=== PATIENT | female | born 1980 | race Caucasian/White ===

== ENCOUNTER 2020-09-16 19:18 | Emergency (ER) | payer BC, MEDICAID ==
[2020-09-16] MEDS ORDERED: diphenhydrAMINE 50 MG/ML SDV IVPUSH ONE (20:14)
[2020-09-16] MEDS ORDERED: Sodium Chloride 0.9% 1,000 ML IV STA (20:14)
[2020-09-16] MEDS ORDERED: Ketorolac 30 MG/ML SDV IVPUSH ONE (20:14)
[2020-09-16] MEDS ORDERED: Ondansetron 4 MG/2 ML SDV IVPUSH ONE (20:14)
--- NOTE | 2020-09-16 21:22 | CT ---
Head CT Technique: Multiple axial sections through the brain were obtained. Intravenous contrast was not utilized. Reconstructed coronal and sagittal images were obtained. Comparison: No previous intracranial imaging is available. Findings: Ventricles along with basal cisterns and sulci over the convexities are within normal limits for the patient's age. No abnormal parenchymal densities are seen. No evidence of intracranial hemorrhage. No midline shift or mass-effect is seen. Bone window settings were reviewed. Visualized mastoid sinuses and paranasal sinuses show nothing acute. No acute calvarial abnormality is appreciated. Impression: 1. Nothing acute is identified on noncontrast head CT study. Diagnostic code #1
--- NOTE | 2020-09-16 21:31 | EDM.PDOC ---
ED HPI GENERAL MEDICAL PROBLEM - General Chief Complaint: Allergic Reaction Stated Complaint: headache poss allergic reaction Time Seen by Provider: 09/16/20 20:11 Source of Information: Reports: Patient, RN Notes Reviewed History Limitations: Reports: No Limitations - History of Present Illness INITIAL COMMENTS - FREE TEXT/NARRATIVE: Patient is a 40-year-old female presenting to the emergency department with complaints of migraine headache. She states that her symptoms began this morning. She was seen in the clinic by Dr. Carias and started on Imitrex for treatment of migraines. She states that she took 1 tab of this medication and shortly thereafter experienced intense burning in her scalp and worsening of her headache. She describes light sensitivity and blurred vision. She does have a history of headaches which she can normally manage with ibuprofen. She has not previously had any imaging completed on her head. Does feel mildly nauseous but has had no vomiting. Denies any recent head injuries. Treatments ROVING CAN TENDER: Reports: Other (see below) Other Treatments ROVING CAN TENDER: Imitrex Left Upper Arm Pain Score (Numeric/FACES): 9 - Related Data Allergies Allergy/AdvReac Type Severity Reaction Status Date / Time No Known Allergies Allergy Verified 09/16/20 19:40 Home Meds: Home Meds SUMAtriptan succinate [Imitrex] 100 mg PO BID PRN 09/16/20 [History] Past Medical History - Past Health History Medical/Surgical History: Denies Medical/Surgical History Neurological History: Reports: Migraines - Infectious Disease History Infectious Disease History: Reports: Novel Coronavirus Social & Family History - Family History Family Medical History: No Pertinent Family History - Tobacco Use Tobacco Use Status *Q: Never Tobacco User Second Hand Smoke Exposure: No - Caffeine Use Caffeine Use: Reports: None - Recreational Drug Use Recreational Drug Use: No ED ROS ALLERGIC REACTION - Review of Systems Review Of Systems: See Below Constitutional: Reports: No Symptoms HEENT: Reports: Vision Change Respiratory: Reports: No Symptoms Cardiovascular: Reports: No Symptoms Endocrine: Reports: No Symptoms GI/Abdominal: Reports: Nausea. Denies: Vomiting : Reports: No Symptoms Musculoskeletal: Reports: No Symptoms Skin: Reports: No Symptoms Neurological: Reports: Headache. Denies: Dizziness Psychiatric: Reports: No Symptoms Hematologic/Lymphatic: Reports: No Symptoms Immunologic: Reports: No Symptoms ED EXAM GENERAL NO PERIP PULSE - Physical Exam Exam: See Below Exam Limited By: No Limitations General Appearance: Alert, WD/WN, No Apparent Distress Eye Exam: Bilateral Eye: PERRL Respiratory/Chest: No Respiratory Distress, Lungs Clear, Normal Breath Sounds, No Accessory Muscle Use, Chest Non-Tender Cardiovascular: Normal Peripheral Pulses, Regular Rate, Rhythm, No Edema, No Gallop, No JVD, No Murmur, No Rub GI/Abdominal: Normal Bowel Sounds, Soft, Non-Tender, No Organomegaly, No Distention, No Abnormal Bruit, No Mass Neurological: Alert, Oriented, CN II-XII Intact, Normal Cognition, Normal Gait, Normal Reflexes, No Motor/Sensory Deficits Psychiatric: Normal Affect, Normal Mood Course - Vital Signs Last Recorded V/S: Last Vital Signs Temp 97.5 F 09/16/20 19:42 Pulse 79 09/16/20 19:42 Resp 20 09/16/20 19:42 BP 117/49 L 09/16/20 19:42 Pulse Ox 99 09/16/20 19:42 - Orders/Labs/Meds Meds: Medications Discontinued Medications Generic Name Dose Route Start Last Admin Trade Name Amaya PRN Reason Stop Dose Admin Diphenhydramine HCl 50 mg 09/16/20 20:14 09/16/20 20:27 Diphenhydramine 50 Mg/Ml Sdv IVPUSH 09/16/20 20:15 50 mg ONETIME ONE Administration Sodium Chloride 1,000 mls @ 999 mls/hr 09/16/20 20:14 09/16/20 20:27 Normal Saline IV 09/16/20 21:14 999 mls/hr NOW STA Administration Ketorolac Tromethamine 30 mg 09/16/20 20:14 09/16/20 20:29 Ketorolac 30 Mg/Ml Sdv IVPUSH 09/16/20 20:15 30 mg ONETIME ONE Administration Ondansetron HCl 4 mg 09/16/20 20:14 09/16/20 20:27 Ondansetron 4 Mg/2 Ml Sdv IVPUSH 09/16/20 20:15 4 mg ONETIME ONE Administration - Re-Assessments/Exams Free Text/Narrative Re-Assessment/Exam: patient is a 40 year old female presenting to the ER with c/o migraine headaches that has worsened since taking a first dose of imitrex. She reports that she experienced intense burning in her scalp after taking this medication, but this has since resolved. She reports a history of headaches but has never had imaging completed. Exam is grossly unremarkable. I have ordered a CT scan of the head without contrast. I will give Toradol, benadryl, zofran, and a 1 liter bolus of NS. 09/16/20 21:[address] showed no intracranial abnormalities. Her headache has resolved. I will discharge her home with instructions to follow-up in the clinic should she continue to experience recurrence of headaches. Discharge instructions as d ocumented. Departure - Departure Time of Disposition: 21:36 Disposition: Home, Self-Care 01 Condition: Good Clinical Impression: Headache Qualifiers: Headache type: unspecified Headache chronicity pattern: acute headache Intractability: not intractable Qualified Code(s): R51.9 - Headache, unspecified - Discharge Information *PRESCRIPTION DRUG MONITORING PROGRAM REVIEWED*: No *COPY OF PRESCRIPTION DRUG MONITORING REPORT IN PATIENT JOSHUA: No Instructions: General Headache Without Cause, [id number] Referrals: Kathie Dawkins NP [Primary Care Provider] - Forms: ED Department Discharge Additional Instructions: You were seen in the ER this evening for worsening of your headache as well as burning in your scalp after taking the Imitrex that was prescribed to you. A CT scan of your head was completed and was found to be normal. While in the ER, you received Toradol, Benadryl, Zofran, and IV fluids. This did resolve your headache. Recommend that you go home and rest. You may use Tylenol and ibuprofen as needed for discomfort; however, you should not take ibuprofen for at least 6 hours. If you continue to have recurring headaches, recommend that you follow-up for further evaluation. If you should experience any new or worsening symptoms, please do not hesistate to return to the ER for reevaluation. Sepsis Event Note (ED) - Evaluation Sepsis Screening Result: No Definite Risk - Focused Exam Vital Signs: Vital Signs Temp Pulse Resp BP Pulse Ox 09/16/20 19:42 97.5 F 79 20 117/49 L 99
[2020-09-16 22:54] VITALS: BP 101/70; PULSE 71
== END 2020-09-16 21:50 | disposition home or self-care (01) ==
LOC: JD.ED 19:18
DX: R51.9 Headache, unspecified (principal); Z86.16 Personal history of COVID-19
CPT/HCPCS: 70450; 96374; 96375; 99283; J1200; J1885; J2405; J7030; 99284

== ENCOUNTER 2021-04-26 08:54 | Emergency (ER) | payer BC, MEDICAID ==
[2021-04-26] MEDS ORDERED: Sodium Chloride 0.9% 10 ML Syringe FLUSH PRN (08:57)
[2021-04-26] MEDS ORDERED: Sodium Chloride 0.9% 1,000 ML IV SCH (09:00)
--- NOTE | 2021-04-26 09:17 | EDM.PDOC ---
ED HPI GENERAL MEDICAL PROBLEM - General Chief Complaint: Abdominal Pain Stated Complaint: VOMITING BACK/ABDOMINAL PAIN Time Seen by Provider: 04/26/21 09:11 - History of Present Illness INITIAL COMMENTS - FREE TEXT/NARRATIVE: 41-year-old female presents the emergency room with abdominal pain. Patient developed nausea vomiting diarrhea and significant abdominal pain about 5:00 this morning. She also noticed significant burning and frequency with urination again this started about 5:00 this morning. Patient denies any possibility of being . She has never had any prior abdominal surgeries. She describes the pain is mostly been on the right side. She describes the diarrhea as watery greasy. She denies prior history of kidney stones or significant abdominal discomfort. abdomen Pain Score (Numeric/FACES): 7 - Related Data Allergies Allergy/AdvReac Type Severity Reaction Status Date / Time sumatriptan Allergy Burning Verified 04/26/21 09:08 Home Meds: Home Meds Hydrocodone/Acetaminophen [HYDROcodone-Acetaminophen 5-325 MG] 1 each PO Q6H PRN #14 tab 04/26/21 [Rx] Prochlorperazine Maleate [Compazine] 10 mg PO Q8H PRN #10 tablet 04/26/21 [Rx] Past Medical History - Past Health History Medical/Surgical History: Denies Medical/Surgical History Neurological History: Reports: Migraines - Infectious Disease History Infectious Disease History: Reports: Novel Coronavirus Social & Family History - Family History Family Medical History: No Pertinent Family History - Tobacco Use Tobacco Use Status *Q: Never Tobacco User - Caffeine Use Caffeine Use: Reports: Energy Drinks, Tea - Recreational Drug Use Recreational Drug Use: No ED ROS GENERAL - Review of Systems Review Of Systems: See Below Constitutional: Reports: Chills. Denies: Fever HEENT: Reports: No Symptoms Respiratory: Reports: No Symptoms Cardiovascular: Reports: No Symptoms GI/Abdominal: Reports: Abdominal Pain, Diarrhea, Nausea, Vomiting : Reports: Dysuria, Frequency, Urgency Musculoskeletal: Reports: Back Pain Neurological: Reports: No Symptoms ED EXAM, GENERAL - Physical Exam Exam: See Below Exam Limited By: No Limitations General Appearance: Alert, Anxious Head: Atraumatic, Normocephalic Neck: Normal Inspection, Supple, Non-Tender, Full Range of Motion. No: Lymphadenopathy (L), Lymphadenopathy (R) Respiratory/Chest: No Respiratory Distress, Lungs Clear, Normal Breath Sounds Cardiovascular: Regular Rate, Rhythm, No Edema, No Murmur GI/Abdominal: Normal Bowel Sounds, Tender (Tenderness is worse on the right side and in the epigastric area), Other (It is somewhat difficult to examine everything is exquisitely tender but no rigidity rebound or guarding) Back Exam: Normal Inspection, CVA Tenderness (R). No: CVA Tenderness (L) Neurological: Alert, Oriented Psychiatric: Anxious Course - Vital Signs Last Recorded V/S: Last Vital Signs Temp 36.7 C 04/26/21 09:05 Pulse 88 04/26/21 12:54 Resp 14 04/26/21 12:54 BP 102/70 04/26/21 12:54 Pulse Ox 98 04/26/21 12:54 Orthostatic Blood Pressure [ 105/82 Standing] Orthostatic Blood Pressure [ 106/77 Sitting] Orthostatic Blood Pressure [ 109/67 Supine] - Orders/Labs/Meds Orders: Active Orders 24 hr Category Date Time Status Communication Order [RC] ASDIRECTED Care 04/26/21 08:57 Active Communication Order [RC] ASDIRECTED Care 04/26/21 08:57 Active Communication Order [RC] ASDIRECTED Care 04/26/21 08:57 Active Orthostatic Vital Signs [RC] ASDIRECTED Care 04/26/21 08:57 Active Peripheral IV Care [RC] . DIRECTED Care 04/26/21 08:57 Active Sodium Chloride 0.9% [Saline Flush] Med 04/26/21 08:57 Active 10 ml FLUSH ASDIRECTED PRN Peripheral IV Insertion Adult [OM.PC] Stat Oth 04/26/21 08:57 Ordered Medication Orders Sodium Chloride (Sodium Chloride 0.9% 10 Ml Syringe) 10 ml FLUSH ASDIRECTED PRN PRN Reason: Keep Vein Open Last Admin: 04/26/21 09:13 Dose: 10 ml Documented by: QUINTIN Labs: Laboratory Tests 04/26/21 04/26/21 04/26/21 Range/Units 09:03 09:03 09:03 WBC 8.89 (3.98-10.04) K/mm3 RBC 4.53 (3.98-5.22) M/mm3 Hgb 13.9 (11.2-15.7) gm/dl Hct 42.2 (34.1-44.9) % MCV 93.2 (79.4-94.8) fl MCH 30.7 (25.6-32.2) pg MCHC 32.9 (32.2-35.5) g/dl RDW Std Deviation 43.4 (36.4-46.3) fL Plt Count 304 (182-369) K/mm3 MPV 10.3 (9.4-12.3) fl Neut % (Auto) 89.8 H (34.0-71.1) % Lymph % (Auto) 4.5 L (19.3-51.7) % Knott % (Auto) 4.4 L (4.7-12.5) % Eos % (Auto) 0.9 (0.7-5.8) Baso % (Auto) 0.2 (0.1-1.2) % Neut # (Auto) 7.98 H (1.56-6.13) K/mm3 Lymph # (Auto) 0.40 L (1.18-3.74) K/mm3 Knott # (Auto) 0.39 H (0.24-0.36) K/mm3 Eos # (Auto) 0.08 (0.04-0.36) K/mm3 Baso # (Auto) 0.02 (0.01-0.08) K/mm3 Sodium 138 (136-145) mEq/L Potassium 3.9 (3.5-5.1) mEq/L Chloride 103 (98-107) mEq/L Carbon Dioxide 25 (21-32) mEq/L Anion Gap 13.9 (5-15) BUN 14 (7-18) mg/dL Creatinine 0.9 (0.55-1.02) mg/dL Est Cr Clr Drug Dosing 66.67 mL/min Estimated GFR (MDRD) > 60 (>60) mL/min BUN/Creatinine Ratio 15.6 (14-18) Glucose 121 H (70-99) mg/dL Calcium 8.2 L (8.5-10.1) mg/dL Magnesium 1.8 (1.8-2.4) mg/dL Total Bilirubin 0.5 (0.2-1.0) mg/dL AST 25 (15-37) U/L ALT 45 (14-59) U/L Alkaline Phosphatase 51 (46-116) U/L C-Reactive Protein <0.2 (<1.0) mg/dL Total Protein 7.2 (6.4-8.2) g/dl Albumin 3.6 (3.4-5.0) g/dl Globulin 3.6 gm/dL Albumin/Globulin Ratio 1.0 (1-2) Lipase 108 (73-393) U/L Urine Color (Yellow) Urine Appearance (Clear) Urine pH (5.0-8.0) Ur Specific Kopperl (1.005-1.030) Urine Protein (Negative) Urine Glucose (UA) (Negative) Urine Ketones (Negative) Urine Occult Blood (Negative) Urine Nitrite (Negative) Urine Bilirubin (Negative) Urine Urobilinogen (0.2-1.0) Ur Leukocyte Esterase (Negative) Urine RBC (0-5) /hpf Urine WBC (0-5) /hpf Ur Squamous Epith Cells (0-5) /hpf Urine Bacteria (FEW) /hpf Urine Mucus (FEW) /hpf Urine HCG, Qual (NEGATIVE) Influenza Type A RNA Negative (NEGATIVE) Influenza Type B RNA Negative (NEGATIVE) SARS-CoV-2 RNA (CHERRY) Negative (NEGATIVE) 04/26/21 04/26/21 Range/Units 09:19 09:19 WBC (3.98-10.04) K/mm3 RBC (3.98-5.22) M/mm3 Hgb (11.2-15.7) gm/dl Hct (34.1-44.9) % MCV (79.4-94.8) fl MCH (25.6-32.2) pg MCHC (32.2-35.5) g/dl RDW Std Deviation (36.4-46.3) fL Plt Count (182-369) K/mm3 MPV (9.4-12.3) fl Neut % (Auto) (34.0-71.1) % Lymph % (Auto) (19.3-51.7) % Knott % (Auto) (4.7-12.5) % Eos % (Auto) (0.7-5.8) Baso % (Auto) (0.1-1.2) % Neut # (Auto) (1.56-6.13) K/mm3 Lymph # (Auto) (1.18-3.74) K/mm3 Knott # (Auto) (0.24-0.36) K/mm3 Eos # (Auto) (0.04-0.36) K/mm3 Baso # (Auto) (0.01-0.08) K/mm3 Sodium (136-145) mEq/L Potassium (3.5-5.1) mEq/L Chloride (98-107) mEq/L Carbon Dioxide (21-32) mEq/L Anion Gap (5-15) BUN (7-18) mg/dL Creatinine (0.55-1.02) mg/dL Est Cr Clr Drug Dosing mL/min Estimated GFR (MDRD) (>60) mL/min BUN/Creatinine Ratio (14-18) Glucose (70-99) mg/dL Calcium (8.5-10.1) mg/dL Magnesium (1.8-2.4) mg/dL Total Bilirubin (0.2-1.0) mg/dL AST (15-37) U/L ALT (14-59) U/L Alkaline Phosphatase (46-116) U/L C-Reactive Protein (<1.0) mg/dL Total Protein (6.4-8.2) g/dl Albumin (3.4-5.0) g/dl Globulin gm/dL Albumin/Globulin Ratio (1-2) Lipase (73-393) U/L Urine Color Yellow (Yellow) Urine Appearance Slt cloudy H (Clear) Urine pH 5.0 (5.0-8.0) Ur Specific Kopperl > or = 1.030 (1.005-1.030) Urine Protein Negative (Negative) Urine Glucose (UA) Negative (Negative) Urine Ketones Negative (Negative) Urine Occult Blood 1+ H (Negative) Urine Nitrite Negative (Negative) Urine Bilirubin Negative (Negative) Urine Urobilinogen 0.2 (0.2-1.0) Ur Leukocyte Esterase Negative (Negative) Urine RBC 5-10 H (0-5) /hpf Urine WBC 0-5 (0-5) /hpf Ur Squamous Epith Cells 0-5 (0-5) /hpf Urine Bacteria Moderate H (FEW) /hpf Urine Mucus Moderate H (FEW) /hpf Urine HCG, Qual Negative (NEGATIVE) Influenza Type A RNA (NEGATIVE) Influenza Type B RNA (NEGATIVE) SARS-CoV-2 RNA (CHERRY) (NEGATIVE) Meds: Medications Generic Name Dose Route Start Last Admin Trade Name Freq PRN Reason Stop Dose Admin Sodium Chloride 10 ml 04/26/21 08:57 04/26/21 09:13 Sodium Chloride 0.9% 10 Ml Syringe FLUSH 10 ml ASDIRECTED PRN Administration Keep Vein Open Discontinued Medications Generic Name Dose Route Start Last Admin Trade Name Amaya PRN Reason Stop Dose Admin Sodium Chloride 1,000 mls @ 999 mls/hr 04/26/21 09:00 04/26/21 09:12 Normal Saline IV 04/26/21 09:59 999 mls/hr Q1H OLIVIA Administration Iopamidol 100 ml 04/26/21 11:56 04/26/21 12:12 Iopamidol 612 Mg/Ml 100 Ml Bottle IVPUSH 04/26/21 11:57 100 ml ONETIME ONE Administration Morphine Sulfate 2 mg 04/26/21 09:54 04/26/21 10:00 Morphine 2 Mg/Ml Syringe IVPUSH 04/26/21 09:55 2 mg ONETIME ONE Administration Ondansetron HCl 4 mg 04/26/21 09:25 04/26/21 09:30 Ondansetron 4 Mg/2 Ml Sdv IVPUSH 04/26/21 09:26 4 mg ONETIME ONE Administration Ondansetron HCl 4 mg 04/26/21 11:47 04/26/21 12:01 Ondansetron 4 Mg/2 Ml Sdv IVPUSH 04/26/21 11:48 4 mg ONETIME ONE Administration Prochlorperazine Edisylate 10 mg 04/26/21 12:46 04/26/21 12:52 Prochlorperazine 10 Mg/2 Ml Sdv IVPUSH 04/26/21 12:47 10 mg ONETIME ONE Administration Sodium Chloride 10 ml 04/26/21 11:56 04/26/21 12:12 Sodium Chloride 0.9% 10 Ml Syringe FLUSH 04/26/21 11:57 10 ml ONETIME ONE Administration - Re-Assessments/Exams Free Text/Narrative Re-Assessment/Exam: 04/26/21 09:33 We will give her some Zofran continue the fluids and attempt reexamination shortly 04/26/21 11:14 Labs reviewed urinalysis is suggestive of microscopic hematuria however leukocyte Estrace nitrates negative not suggestive of infectious process. We will proceed to CT with IV contrast only I cannot exclude an early appendicitis but I am concerned about a kidney stone also. 04/26/21 12:47 CT evaluation of her abdomen is unremarkable. However the appendix was not visualized. I discussed these findings with the patient. She is doing for the most part somewhat better she still having some nausea despite 2 doses of Zofran we will give her a dose of Compazine and see how this goes. But I did explain to her that she should return to the emergency room in 24 hours if not improving sooner if getting worse. 04/26/21 13:06 The Compazine is working better she would like to be discharged. Departure - Departure Time of Disposition: 13:06 Disposition: Home, Self-Care 01 Clinical Impression: Abdominal pain of unknown cause - Discharge Information Referrals: Kathie Dawkins REELING MACHINE OPERATOR [Primary Care Provider] - Forms: ED Department Discharge Additional Instructions: Return to the emergency room with any questions problems or worsening symptoms. The cause your abdominal pain has not been clearly identified. Work-up is pretty unremarkable at this point. However if you are not significantly better in 24 hours return to the emergency room for recheck return sooner if getting worse. You been started on Compazine this is a nausea medication you can take 1 every 8 hours. This medication can cause sedation. You have also been given hydrocodone which also can cause sedation take 1 of these every 6 hours as needed for abdominal pain. Do not drive or return to within 12 hours of using either of these medications. Sepsis Event Note (ED) - Evaluation Sepsis Screening Result: No Definite Risk - Focused Exam Vital Signs: Vital Signs Temp Pulse Resp BP Pulse Ox 04/26/21 12:54 88 14 102/70 98 04/26/21 09:05 36.7 C 80 18 109/67 100 - My Orders Last 24 Hours: My Active Orders 04/26/21 08:57 Communication Order [RC] ASDIRECTED Communication Order [RC] ASDIRECTED Communication Order [RC] ASDIRECTED Orthostatic Vital Signs [RC] ASDIRECTED Peripheral IV Care [RC] . DIRECTED Sodium Chloride 0.9% [Saline Flush] 10 ml FLUSH ASDIRECTED PRN Peripheral IV Insertion Adult [OM.PC] Stat - Assessment/Plan Last 24 Hours: My Active Orders 04/26/21 08:57 Communication Order [RC] ASDIRECTED Communication Order [RC] ASDIRECTED Communication Order [RC] ASDIRECTED Orthostatic Vital Signs [RC] ASDIRECTED Peripheral IV Care [RC] . DIRECTED Sodium Chloride 0.9% [Saline Flush] 10 ml FLUSH ASDIRECTED PRN Peripheral IV Insertion Adult [OM.PC] Stat
[2021-04-26] MEDS ORDERED: Ondansetron 4 MG/2 ML SDV IVPUSH ONE ×2 (09:25→11:47)
[2021-04-26] MEDS ORDERED: Morphine 2 MG/ML SYRINGE IVPUSH ONE (09:54)
[2021-04-26 10:20] LABS: CORONAVIRUS COVID-19 NAA NEGATIVE (NEGATIVE)
[2021-04-26] MEDS ORDERED: Iopamidol 612 MG/ML 100 ML Bottle IVPUSH ONE (11:56)
[2021-04-26] MEDS ORDERED: Sodium Chloride 0.9% 10 ML Syringe FLUSH ONE (11:56)
--- NOTE | 2021-04-26 12:36 | CT ---
CT abdomen and pelvis Technique: Multiple axial sections were obtained from above the dome of the diaphragm inferiorly through the pubic symphysis. Intravenous contrast was utilized. No oral contrast has been given. Delayed images were also obtained from above the dome of the diaphragm inferiorly through the pubic symphysis. Comparison: No prior CT abdomen or pelvis study is available. Findings: Bilateral breast prostheses are partially seen. Visualized lung bases show nothing acute. Liver shows a small low-density lesion anteriorly. This liver lesion measures approximately 4.7 mm. This is too small to get accurate Hounsfield unit measurement but most likely represents a small cyst. Spleen size is normal. Gallbladder contains no calcified gallstones. Pancreas is within normal limits. Adrenal glands show no nodule. Kidneys show symmetric contrast enhancement. Abdominal aorta shows no aneurysm. No retroperitoneal adenopathy is seen. Appendix is not visualized. Terminal ileum is within normal limits. No small bowel dilatation is seen. Fluid is noted within the right colon which can be seen normally. Delayed images show contrast excretion from both kidneys into the ureters and bladder. No findings of ureteral obstruction is seen. Bone window settings were obtained which show slight degenerative change within the spine. No acute osseous abnormality is appreciated. Impression: 1. No ureteral dilatation or ureteral obstruction is seen. 2. Appendix is not visualized. 3. Fluid within the right side of the colon which can be seen normally. 4. Nothing acute is definitely appreciated on CT study of the abdomen and pelvis. Diagnostic code #2
[2021-04-26] MEDS ORDERED: Prochlorperazine 10 MG/2 ML SDV IVPUSH ONE (12:46)
[2021-04-26 12:54] VITALS: BP 102/70; PULSE 88
== END 2021-04-26 13:20 | disposition home or self-care (01) ==
LOC: JD.ED 08:54
DX: R10.13 Epigastric pain (principal); Z88.8 Allergy status to other drugs, medicaments and biological substances; Z20.822 Contact with and (suspected) exposure to COVID-19
CPT/HCPCS: 0240U; 36415; 74177; 80053; 81001; 81025; 83690; 83735; 85025; 86140; 96374; 96375; 96376; 99284; J0780; J2270; J2405; J7030; Q9967

== ENCOUNTER 2025-01-19 16:26 | Emergency (ER) | payer BC, MEDICAID ==
[2025-01-19 16:41] VITALS: BP 113/70; PULSE 75
[2025-01-19 17:09] LABS: BASOPHILS ABSOLUTE AUTO 0.1 K/mm3 (0.0-0.2); BASOPHILS PERCENT AUTO 0.9 % (0.0-1.0); EOSINOPHILS ABSOLUTE AUTO 0.1 K/mm3 (0.0-0.4); EOSINOPHILS PERCENT AUTO 2.2 % (0.0-6.0); IMMATURE GRAN ABSOLUTE AUTO 0.01 K/mm3 (0.00-0.05); IMMATURE GRAN PERCENT AUTO 0.2 % (0.0-0.4); LYMPHOCYTES ABSOLUTE AUTO 2.5 K/mm3 (1.0-4.8); LYMPHOCYTES PERCENT AUTO 45.8 % (24.0-44.0); MEAN PLATELET VOLUME 9.9 fl (9.4-12.3); MONOCYTES ABSOLUTE AUTO 0.5 K/mm3 (0.0-0.8); MONOCYTES PERCENT AUTO 8.3 % (0.0-8.0); NEUTROPHILS ABSOLUTE AUTO 2.4 K/mm3 (1.8-7.7); NEUTROPHILS PERCENT AUTO 42.6 % (41.0-71.0); NRBC ABSOLUTE 0.00 (0.00-0.02); NRBC PERCENT 0.0 % (0.0-0.2); PLATELET COUNT,PLT 266 K/mm3 (150-400); RED BLOOD CELL COUNT 4.08 M/mm3 (4.10-5.30); WHITE BLOOD CELL COUNT,WBC 5.54 K/mm3 (3.9-11.3)
[2025-01-19 17:31] LABS: A/G RATIO 1.1 (1-2); ALANINE AMINOTRANSFERASE,ALT 23 U/L (14-59); ASPARTATE AMNIOTRANSFERASE,AST 11 U/L (15-37); BILIRUBIN TOTAL 0.4 mg/dL (0.2-1.0); BLOOD UREA NITROGEN,BUN 10 mg/dL (7-18); CARBON DIOXIDE,CO2 28 mEq/L (21-32); CHLORIDE,CL 105 mEq/L (98-107); CREATININE 0.8 mg/dL (0.55-1.02); EST CRCL DRUG DOSING (CG) 72.69 mL/min; ESTIMATED GFR 92 mL/min (>60); GLUCOSE RANDOM 98 mg/dL (70-99); POTASSIUM,K 4.6 mEq/L (3.5-5.1); PROTEIN TOTAL,TP 6.8 g/dl (6.4-8.2); SODIUM,NA 139 mEq/L (136-145)
[2025-01-19 17:34] LABS: TROPONIN I HIGH SENSITIVITY < 4 pg/mL (<=51)
== END 2025-01-19 19:30 | disposition home or self-care (01) ==
LOC: JD.ED 16:26
DX: R07.89 Other chest pain (principal); R05.1 Acute cough; Z86.16 Personal history of COVID-19; Z79.899 Other long term (current) drug therapy; Z88.8 Allergy status to other drugs, medicaments and biological substances
CPT/HCPCS: 36415; 71046; 80053; 84484; 85025; 93005; 99285; A9270